=== PATIENT | male | born 1950 | race Hispanic/Latino ===

== ENCOUNTER 2017-12-16 09:47 | Emergency (ER) | payer MEDICARE, MEDICAID ==
[2017-12-16 10:04] VITALS: BMI 31.3
[2017-12-16 10:05] VITALS: TEMP 99.2; O2SAT 97
[2017-12-16] MEDS ORDERED: Phenylephrine 1% Nasal Spray (15 ml) NAS STA (11:16)
--- NOTE | 2017-12-16 11:57 | C.PDOC ---
History Of Present Illness 67 y/o male presents to the ER complaining of epistaxis from the right nare which occurred earlier today. Patient is also complaining of upper dental pain, cough, and runny nose which has been present for several days. Patient denies having fever, shortness of breath, chest pain, sore throat, and trauma. Time Seen by Provider: 12/16/17 10:38 Chief Complaint (Nursing): ENT Problem History Per: Patient History/Exam Limitations: no limitations Onset/Duration Of Symptoms: Days Current Symptoms Are (Timing): Still Present Severity: Moderate Past Medical History Reviewed: Historical Data, Nursing Documentation, Vital Signs Vital Signs: Last Vital Signs Temp 99.2 F 12/16/17 10:04 Pulse 68 12/16/17 12:13 Resp 18 12/16/17 12:13 BP 137/82 12/16/17 12:13 Pulse Ox 97 12/16/17 14:33 - Medical History PMH: HTN, Hypercholesterolemia Surgical History: No Surg Hx Family History: States: No Known Family Hx - Social History Hx Alcohol Use: Yes Hx Substance Use: No - Immunization History Hx Tetanus Toxoid Vaccination: No (allergy) Hx Influenza Vaccination: No Hx Pneumococcal Vaccination: No Review Of Systems Constitutional: Negative for: Fever, Chills ENT: Positive for: Nose Discharge. Negative for: Throat Pain Cardiovascular: Negative for: Chest Pain Respiratory: Positive for: Cough. Negative for: Shortness of Breath Physical Exam - Physical Exam Appears: Non-toxic, No Acute Distress Skin: Normal Color, Warm Head: Atraumatic, Normacephalic Eye(s): bilateral: Normal Inspection, PERRL Ear(s): Bilateral: Normal Nose: Epistaxis (mild epistaxis in right nare), No Septal Hematoma Oral Mucosa: Moist, Other (no blood in posterior oral pharynx) Throat: Normal, No Erythema, No Exudate Neck: Supple Cardiovascular: Rhythm Regular Respiratory: Normal Breath Sounds, No Accessory Muscle Use, No Rales, No Rhonchi , No Wheezing Gastrointestinal/Abdominal: Normal Exam, Soft, No Tenderness Extremity: Normal ROM Neurological/Psych: Oriented x3, Normal Speech, Normal Cognition, Normal Motor, Normal Sensation ED Course And Treatment O2 Sat by Pulse Oximetry: 97 (RA) Pulse Ox Interpretation: Normal Progress Note: CXR was normal. The right nare of patient was packed with Rhino Rocket and Sedrick-Synephrine spray. Patient went home with Rhino and was given a prescription of Augmentin. Patient has been told to follow up with ENT. Disposition Counseled Patient/Family Regarding: Studies Performed, Diagnosis, Need For Followup, Rx Given - Disposition Referrals: Koko Monge MD [Staff Provider] - Disposition: HOME/ ROUTINE Disposition Time: 12:00 Condition: STABLE Prescriptions: Amoxicillin/Clavulanate [Augmentin 875 MG-125 MG] 1 tab PO BID #14 tab Benzonatate [Tessalon Perles] 100 mg PO BID PRN #15 sgl PRN Reason: Cough Naproxen 375 mg PO BID PRN #20 tablet PRN Reason: pain Instructions: Nosebleed (ED) Forms: [employer] (Colombian) Print Language: VIETNAMESE - Clinical Impression Clinical Impression: Epistaxis, Viral upper respiratory infection - Scribe Statement The provider has reviewed the documentation as recorded by the Tj Pereyra Provider Attestation: All medical record entries made by the Aylaibcherri were at my direction and personally dictated by me. I have reviewed the chart and agree that the record accurately reflects my personal performance of the history, physical exam, medical decision making, and the department course for this patient. I have also personally directed, reviewed, and agree with the discharge instructions and disposition.
[2017-12-16] MEDS ORDERED: Naproxen 550 mg Tab PO STA (12:06)
[2017-12-16] MEDS ORDERED: Naproxen 550 mg Tab PO ONE (12:11)
[2017-12-16 12:14] VITALS: BP 137/82; PULSE 68; RESP 18
--- NOTE | 2017-12-16 12:22 | RAD ---
HISTORY: prod cough COMPARISON: No prior study available for comparison TECHNIQUE: Chest PA and lateral FINDINGS: LUNGS: Minor bibasilar atelectasis. PLEURA: No significant pleural effusion identified. No pneumothorax apparent. CARDIOVASCULAR: Normal. OSSEOUS STRUCTURES: Mild multilevel degenerative spondylosis of the thoracic spine VISUALIZED UPPER ABDOMEN: Normal. OTHER FINDINGS: None. IMPRESSION: Minor bibasilar atelectasis.
== END 2017-12-16 12:14 | disposition home or self-care (01) ==
LOC: C.ER 09:47
DX: R04.0 Epistaxis (principal); J06.9 Acute upper respiratory infection, unspecified; I10 Essential (primary) hypertension; E78.00 Pure hypercholesterolemia, unspecified